=== PATIENT | male | born 1975 | race Caucasian/White ===

== ENCOUNTER 2017-12-05 17:02 | Emergency (ER) | payer OTHER ==
[~2017-12-05] VITALS: Ht 165.1 cm; Wt 88.5 kg
[~2017-12-05 17:02] MED LIST: AMBIEN5 MG; HUMALOG KW100 UNIT/1; KLONOPIN0.5 MG/TAB; LANTUS SOLOSTAR3 ML; LISINOPRIL2.5 MG; MEDROL4 MG PO; METFORMIN HCL850 MG; METOPROLOL SUCC25 MG; NEURONTIN300 MG PO; PROVENTIL3 ML/2.5 M IH; RESTORIL22.5 MG; SAPHRIS10 MG; SEROQUEL25 MG; TUSICOF LIQUID120 ML PO
== END 2017-12-08 16:42 | disposition home or self-care (01) ==
LOC: ER 17:02 → CPU-OBS 17:12 → ER 17:12
DX: I20.0 Unstable angina (principal); E78.00 Pure hypercholesterolemia, unspecified; I10 Essential (primary) hypertension; E11.65 Type 2 diabetes mellitus with hyperglycemia; R07.89 Other chest pain

== ENCOUNTER 2018-10-18 21:03 | Emergency (ER) | payer OTHER ==
[~2018-10-18] VITALS: Ht 152.4 cm; Wt 88.5 kg
[2018-10-18] MEDS ORDERED: COZAAR25 MG (21:16)
[2018-10-18] MEDS ORDERED: ATIVAN2 M1 (21:17)
[2018-10-18] MEDS ORDERED: TRAZODONE HCL300 MG (21:17)
[2018-10-18] MEDS ORDERED: AMBIEN5 MG (21:17)
[2018-10-19] MEDS ORDERED: MECLIZINE HCL25 MG PO (04:32)
== END 2018-10-19 04:47 | disposition home or self-care (01) ==
LOC: ER 21:03
DX: R51 Headache (principal); R42 Dizziness and giddiness; E11.65 Type 2 diabetes mellitus with hyperglycemia

== ENCOUNTER 2019-10-20 07:44 | Emergency (ER) | payer OTHER ==
[~2019-10-20] VITALS: Ht 165.1 cm; Wt 63.5 kg
[~2019-10-20 07:44] MED LIST changes: +ATIVAN2 M1; +COZAAR25 MG; +MECLIZINE HCL25 MG PO; +TRAZODONE HCL300 MG
== END 2019-10-20 10:32 | disposition home or self-care (01) ==
LOC: ER 07:44
DX: J06.9 Acute upper respiratory infection, unspecified (principal); J01.00 Acute maxillary sinusitis, unspecified; J32.8 Other chronic sinusitis; B96.0 Mycoplasma pneumoniae [M. pneumoniae] as the cause of diseases classified elsewhere

== ENCOUNTER → 2021-03-10 | Emergency (ER) | payer OTHER ==
[~2021-03-10] VITALS: Ht 165.1 cm; Wt 79.4 kg
[~2021-03-10] MED LIST changes: +ATORVASTATIN CA40 MG PO; +BENZTROPINE ME0.5 MG PO; +FAMOTIDINE20 MG PO; +JANUMET XR 1001 EACH PO; +LANSOPRAZOLE30 MG PO; +LANTUS SOL100 UNIT/1 SQ; +LORAZEPAM2 MG PO; +LOSARTAN POTASS50 MG PO; +MELOXICAM15 MG PO; +METOPROLOL SUCC25 MG PO; +OMEGA-3 ACID ETH1 GM PO; +QUETIAPINE FUM300 MG PO; +QUETIAPINE FUM400 MG PO
== END | disposition home or self-care (01) ==
LOC: ER 21:15
DX: J34.0 Abscess, furuncle and carbuncle of nose (principal)

== ENCOUNTER 2021-11-14 14:59 | Emergency (ER) | payer OTHER ==
[~2021-11-14] VITALS: Ht 165.1 cm; Wt 79.4 kg
[2021-11-14] MEDS ORDERED: FIBERSOURCE H1500 ML (16:22)
[2021-11-14] MEDS ORDERED: DOCUSATE CALCI240 MG (16:22)
== END 2021-11-14 22:47 | disposition home or self-care (01) ==
LOC: ER 14:59
DX: K59.00 Constipation, unspecified (principal); R10.9 Unspecified abdominal pain

== ENCOUNTER 2022-03-31 15:53 | Emergency (ER) | payer OTHER ==
[~2022-03-31] VITALS: Ht 160 cm; Wt 78.5 kg
[~2022-03-31 15:53] MED LIST changes: +DOCUSATE CALCI240 MG; +FIBERSOURCE H1500 ML
[2022-03-31] MEDS ORDERED: XIGDUO XR 10 M1 EACH PO (16:05)
[2022-03-31] MEDS ORDERED: SEROQUEL XR400 MG PO (16:05)
== END 2022-03-31 17:17 | disposition home or self-care (01) ==
LOC: ER 15:53
DX: J34.0 Abscess, furuncle and carbuncle of nose (principal); E11.9 Type 2 diabetes mellitus without complications; Z79.4 Long term (current) use of insulin; I10 Essential (primary) hypertension

== ENCOUNTER 2022-10-15 09:20 | Emergency (ER) | payer OTHER ==
[~2022-10-15] VITALS: Ht 165.1 cm; Wt 76.2 kg
[~2022-10-15 09:20] MED LIST changes: +SEROQUEL XR400 MG PO; +XIGDUO XR 10 M1 EACH PO
[2022-10-15] MEDS ORDERED: ATIVAN2 M1 PO (09:34)
== END 2022-10-15 13:36 | disposition home or self-care (01) ==
LOC: ER 09:20
DX: K59.00 Constipation, unspecified (principal); E88.81 Metabolic syndrome and other insulin resistance; E78.00 Pure hypercholesterolemia, unspecified; I10 Essential (primary) hypertension

== ENCOUNTER 2023-05-04 15:47 | Emergency (ER) | payer OTHER ==
[~2023-05-04] VITALS: Ht 165.1 cm; Wt 77.1 kg
[~2023-05-04 15:47] MED LIST changes: +ATIVAN2 M1 PO
[2023-05-04] MEDS ORDERED: AMBIEN5 MG PO (16:05)
== END 2023-05-04 20:50 | disposition home or self-care (01) ==
LOC: ER 15:47
DX: M54.59 Other low back pain (principal); E11.9 Type 2 diabetes mellitus without complications; Z79.4 Long term (current) use of insulin; G47.39 Other sleep apnea; E78.1 Pure hyperglyceridemia
CPT/HCPCS: 72100; 96372; 99284; J1885; J2360